=== PATIENT | female | born 1940 | race Hispanic/Latino ===

== ENCOUNTER → 2024-12-30 | Outpatient (CLI) | payer OTHER, MEDICARE ==
--- NOTE | 2024-12-30 12:51 | HMCIMG ---
Exam Type: CHEST 2VWS Clinical Information: COUGH Comparison: None Findings: The lungs are clear of infiltrates. The heart is normal in size. The bony and soft tissue structures of the chest are unremarkable. Impression: Clear lungs.
== END | disposition home or self-care (01) ==
LOC: RAH 06:56
PROVIDERS: ATTEND Physician Assistant
DX: R05.9 Cough, unspecified (principal)
CPT/HCPCS: 71046